=== PATIENT | male | born 1995 | race Caucasian/White ===

== ENCOUNTER 2020-03-13 15:13 | Emergency (ER) | payer OTHER, SELFPAY ==
--- NOTE | ~2020-03-13 | XR_ITS ---
EXAMINATION: XR hip RT 2V w AP pelvis INDICATION: Right hip pain TECHNIQUE: AP view the pelvis and two views of the right hip are obtained. COMPARISON: None available FINDINGS: Bone alignment is normal. There is no fracture. There is mild lateral soft tissue swelling overlying the right hip. IMPRESSION: 1. No acute osseous abnormality. Reviewed, dictated and finalized at location A.
[2020-03-13 15:12] VITALS: BP 131/96; PULSE 98; RESP 16; TEMP 37.6; O2SAT 100
[2020-03-13] MEDS: IBUPROFEN 600 MG TABLET PO (16:01)
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
[2020-03-13 17:06] VITALS: BP 144/78; PULSE 80; RESP 16; TEMP 37.2; O2SAT 100
== END 2020-03-13 17:08 | disposition home or self-care (01) ==
PROVIDERS: Emergency Provider General Practice
DX: S70.01XA Contusion of right hip, initial encounter (principal); S80.211A Abrasion, right knee, initial encounter; V13.4XXA Pedal cycle driver injured in collision with car, pick-up truck or van in traffic accident, initial encounter
CPT/HCPCS: 73502; 99283; A9270

== ENCOUNTER 2022-01-02 10:36 | Emergency (ER) | payer OTHER, SELFPAY ==
[2022-01-02 10:43] VITALS: BP 134/80; PULSE 83; RESP 12; TEMP 36.5; O2SAT 98
--- NOTE | 2022-01-02 11:14 | ED.GENADULT ---
HPI - General Adult General Chief complaint: Upper Respiratory Infection Stated complaint: Sore throat Source: patient Mode of arrival: ambulatory Limitations: no limitations History of Present Illness HPI narrative: Patient presents for evaluation of sore throat since night. He states symptoms started abruptly while he was out of town for a conference. He states he had similar symptoms in the past with strep pharyngitis. No recent sick contacts. He has received his COVID vaccination. He reports feeling as though his sinuses are dried out . He has some mild ear discomfort. No fever, chills, nausea, vomiting or cough. He is not taking any medication to assist with his symptoms. He does have asthma and states he normally rinses his mouth out after using his inhalers. However, while he was out of town for his conference, he was not performing his normal oral hygiene practices. He states he normally has a white plaque on his tongue but it appears worse at present time. Related Data Allergies Allergy/AdvReac Type Severity Reaction Status Date / Time No Known Allergies Allergy Unverified 05/28/19 07:43 Review of Systems Review of Systems: CONSTITUTIONAL: Denies fever, chills, or sweats. EYES: Denies visual changes, redness, or discharge. ENT: Reports sore throat, ear discomfort and sensation that his sinuses are dried out . CARDIOVASCULAR: Denies chest pain, palpitations, or edema. RESPIRATORY: Denies cough or dyspnea. GASTROINTESTINAL: Denies abdominal pain, nausea, vomiting, or diarrhea. GENITOURINARY: Denies dysuria or hematuria. SKIN: Denies rash or itching. MUSCULOSKELETAL: Denies back pain, joint pain, or myalgia. NEUROLOGIC: Denies headache, numbness, dizziness, or weakness. PSYCHIATRIC: Denies anxiety or depression. [facility] Past Medical History Medical History Asthma Surgical History Surgical History No pertinent past surgical history Family History Family History Father Obesity Kidney disease Hypertension Social History Social History Smoking status: Never smoker Alcohol intake: never Substance use: never Living arrangements: with family Gender identity (if verbalized by the patient): Male Sexual Orientation (if Verbalized by the Patient): Straight or Heterosexual Spiritual care concerns: No Exam Narrative: GENERAL: Well-appearing, well-nourished, and in no acute distress. HEAD: Normocephalic, atraumatic. EYES: PERRLA and EOMI. ENT: Nares clear, no rhinorrhea or epistaxis. Mucous membranes moist. Oropharynx without tonsillar hypertrophy exudate or other lesions. There appears to be tonsilolith on right side. Bilateral TMs pearly childress nonbulging NECK: Supple. No adenopathy or masses. No carotid bruits or JVD CHEST: Clear to auscultation. No respiratory distress. No wheezes rales or rhonchi HEART: Regular rate and rhythm. No murmur heard. Normal peripheral pulses. ABDOMEN: Soft, nontender, nondistended, normal active bowel sounds. EXTREMITIES: Normal range of motion. No edema. SKIN: Warm, dry, no rash. NEURO: No focal deficits. Alert and oriented x3. PSYCH: Normal mood and affect. Course Course Emergency Course: This is a 26-year-old male who presented with complaints of sore throat. He has not been performing oral hygiene following inhaler use. He has some white plaque to his tongue which could be thrush given recent history. We will treat with nystatin. Discussed watchful waiting and review of throat culture for abx. He would like to be treated today with abx. This seems reasonable as he has a chronic white plaque to his tongue so it is challenging to say that this is definitively thrush. We will have him follow up evaluation treat
== END 2022-01-02 11:20 | disposition home or self-care (01) ==
PROVIDERS: Emergency Provider Nurse Practitioner; PCP Internal Medicine
DX: J02.9 Acute pharyngitis, unspecified (principal); J45.909 Unspecified asthma, uncomplicated
CPT/HCPCS: 87081; 87880; 99213; G0463